=== PATIENT | female | born 1970 | race Caucasian/White ===

== ENCOUNTER 2017-04-12 22:07 | Observation (INO) ==
[2017-04-12] MEDS ORDERED: 0.9 % Sodium Chloride 1,000 ML IVC ONE ×2 (22:31→23:31)
[2017-04-12] MEDS ORDERED: Lactulose Oral Soln 20 GM/30 ML UDC PO ONE (22:31)
[2017-04-12 22:52] LABS: Basophils % 1.2 %; Eosinophils # 0.2 K/mcL (0.0-0.6); Eosinophils % 5.4 %; Hematocrit 36.8 % (35.3-44.9); Hemoglobin 12.2 g/dL (11.5-15.4); Immature Granulocytes % 0.3 % (0-4); Immature Platelets 3.6 % (1.1-6.1); Lymphocytes # 1.2 K/mcL (0.6-4.6); Lymphocytes % 35.1 %; Mean Corpuscular HGB Conc 33.2 g/dL (31.6-35.5); Mean Corpuscular Hemoglobin 30.8 pg (28.0-33.3); Mean Corpuscular Volume 92.9 fL (83.0-100.0); Mean Platelet Volume 10.5 fL (9.4-12.4); Monocytes # 0.3 K/mcL (0.0-1.3); Neutrophils # 1.6 K/mcL (1.6-8.9); Red Blood Count 3.96 M/mcL (3.82-4.97); Red Cell Distribution Width 13.8 % (11.5-14.5)
[2017-04-12 22:53] LABS: Bilirubin,Urine Negative (Negative); Blood,Urine Negative (Negative); Color,Urine Yellow (Yellow); Glucose,Urine (UA) Normal (Normal); Ketones,Urine Negative (Negative); Leukocyte Esterase,Urine Negative (Negative); Nitrite,Urine Negative (Negative); Protein,Urine Negative (Neg-Trace); Specific Gravity,Urine 1.014 (1.010-1.025); Urobilinogen,Urine Normal (Normal)
[2017-04-12 22:54] LABS: INR 1.1; Prothrombin Time 11.6 Seconds (9.4-12.1)
[2017-04-12 22:55] LABS: Bacteria,Urine None Seen per hpf (None-Few); Hyaline Casts,Urine None Seen per lpf (None-Few); RBC,Urine 0-3 per hpf (0-3); Squamous Epithelial Cell,Urine Many per lpf (None-Few)
[2017-04-12 22:56] LABS: Amphetamine Screen,Urine Negative ng/mL (Cutoff=1000); Barbiturate Screen,Urine Negative ng/mL (Cutoff=200); Benzodiazepines Screen,Urine Negative ng/mL (Cutoff=200); Cannabinoid Screen,Urine Negative ng/mL (Cutoff = 50); Clarity,Urine Clear (Clear); Cocaine Screen,Urine Negative ng/mL (Cutoff= 300); Opiate Screen,Urine Negative ng/mL (Cutoff=300); Phencyclidine Screen,Urine Negative ng/mL (Cutoff=25)
[2017-04-12 22:57] LABS: Activated Partial Thrombo Time 33.9 Seconds (26.0-36.0)
--- NOTE | 2017-04-12 23:01 | Emergency Department Note ---
Disposition Clinical Impression: Alcoholic liver disease, Pancreatitis Alcoholic hepatitis Qualifiers: Ascites presence: without ascites Qualified Code(s): K70.10 - Alcoholic hepatitis without ascites Disposition: Admitted As Inpatient Abdominal Pain HPI - General Chief Complaint: ED Abdominal Pain Stated Complaint: AMS/ABD Pain Time Seen by Provider: 04/12/17 22:15 Source: patient Mode of arrival: ambulatory Limitations: no limitations Nursing Notes Reviewed: Yes Vital Signs Reviewed: Yes - History of Present Illness HPI Narrative: Patient presents to the ED with the chief complaint of abdominal pain and altered mental status. Most of the history is given by the patient's boyfriend. He states that she has a history of alcoholic cirrhosis and continues to drink. States that she has mostly stopped drinking liquor but she does drink beer and last drink was a few minutes prior to arrival. She is noncompliant with her lactulose and has been having altered mental status the last 2 days. She complains of feeling fuzzy headed, headache, loss of vision in her left eye. Headaches, generalized achy and like her previous issues with her ammonia level being high. She complains of right upper quadrant abdominal pain, nausea but no vomiting. No diarrhea. No chest pain or shortness of breath. Pain Scale: 10 - Related Data Home Medications Medication Instructions Recorded Confirmed FentaNYL PATCH [Duragesic] 25 mcg TD Q72H 04/25/15 04/25/15 Furosemide [Lasix] 80 mg PO BIDDIURETIC 04/25/15 04/25/15 LORazepam [Ativan] 1 mg PO DAILY PRN 04/25/15 04/25/15 Lactulose 20 gm PO TID 04/25/15 04/13/17 Multivitamin [Multi-Day Vitamins] 1 cap PO DAILY 04/25/15 04/13/17 Nadolol [Corgard] 40 mg PO DAILY 04/25/15 04/13/17 Nortriptyline [Pamelor] 25 mg PO BID 04/25/15 04/13/17 Oxycodone HCl 10 mg PO TID 04/25/15 04/25/15 Promethazine [Phenergan] 25 mg PO Q8H PRN 04/25/15 04/13/17 Spironolactone [Aldactone] 150 mg PO BID 04/25/15 04/13/17 Thiamine (B-1) [Vitamin B-1] 100 mg PO DAILY 04/25/15 04/13/17 Previous Rx's Medication Instructions Recorded Ibuprofen [Motrin] 400 mg PO Q6HR PRN #60 tablet 02/22/16 Allergies Allergy/AdvReac Type Severity Reaction Status Date / Time No Known Allergies Allergy Verified 10/10/16 08:54 All systems ED: reviewed and negative except as stated. Constitutional: Denies: fever Cardiovascular: Denies: chest pain Respiratory: Denies: cough, dyspnea Gastrointestinal: Reports: abdominal pain, nausea. Denies: hematemesis, melena , hematochezia Genitourinary: Denies: dysuria, hematuria Neurological: Reports: confusion Hematological/Lymphatic: Reports: easy bruising Abdominal Pain PMH - Past Medical History Medical history: Reports: liver disease, other Female Surgical History: Reports: cholecystectomy, other Psychiatric history: Reports: anxiety, depression, other - Social History Smoking status: Current every day smoker Alcohol use: Reports: heavy, recent Drug use: Reports: none Physical Exam - General Limitations: no limitations General appearance: alert, in no apparent distress - Head Head exam: atraumatic, normocephalic, normal inspection - Eye Eye exam: Present: normal appearance, PERRL, EOMI. Absent: scleral icterus, conjunctival injection - ENT ENT exam: normal exam, normal oropharynx, mucous membranes moist - Neck Neck exam: Present: normal inspection, full ROM, trachea midline. Absent: tenderness, meningismus - Chest Chest inspection: Present: normal inspection, symmetric chest wall rise. Absent : tenderness - Respiratory Respiratory exam: Present: normal lung sounds bilaterally. Absent: respiratory distress, wheezes - Cardiovascular Cardiovascular exam: Present: regular rate, normal rhythm, normal heart sounds - Abdominal Exam Abdominal exam: Present: soft, tenderness, normal bowel sounds. Absent: distention, guarding, rebound, rigidity Abdominal tenderness: Present: RUQ, epigastrium, moderate - Extremities Exam Extremities exam: Present: normal inspection, full ROM. Absent: tenderness, pedal edema - Back Exam Back exam: Present: normal inspection, CVA tenderness (R). Absent: CVA tenderness (L) - Neurological Exam Neurological exam: Present: alert, oriented X3. Absent: motor sensory deficit - Psychiatric Psychiatric exam: Present: depressed - Skin Skin exam: Present: warm, dry, intact. Absent: cyanosis, diaphoresis Course - Consultations Consultation #1: The hospitalist, Dr. Steele, was consulted and accepted admission of the patient to the medical service. Vital Signs Temperature 98.4 F 04/12/17 22:08 Pulse Rate 91 04/12/17 22:08 Respiratory Rate 16 04/12/17 22:08 Blood Pressure 113/52 04/12/17 22:08 O2 Sat by Pulse Oximetry 94 04/12/17 22:08 Temperature 98.2 F 04/13/17 06:46 Pulse Rate 77 04/13/17 06:46 Respiratory Rate 18 04/13/17 06:46 Blood Pressure 111/67 04/13/17 06:46 O2 Sat by Pulse Oximetry 94 04/13/17 06:46 Oxygen Delivery Oxygen Delivery Room Air Abdominal Pain - Medical Records Medical records reviewed: Yes I reviewed the patient's medical records. - Lab Data Lab results reviewed: Yes I reviewed the patient's lab results. Result diagrams: 04/12/17 22:40 04/13/17 05:31 Lab Results 04/12/17 04/12/17 04/12/17 Range/Units 22:23 22:23 22:40 WBC 3.3 L (4.3-11.1) K/mcL RBC 3.96 (3.82-4.97) M/mcL Hgb 12.2 (11.5-15.4) g/dL Hct 36.8 (35.3-44.9) % MCV 92.9 (83.0-100.0) fL MCH 30.8 (28.0-33.3) pg MCHC 33.2 (31.6-35.5) g/dL RDW 13.8 (11.5-14.5) % Plt Count 54 L (140-400) K/mcL MPV 10.5 (9.4-12.4) fL Immature Gran % 0.3 (0-4) % Seg Neutrophils % 49.0 % Lymphocytes % 35.1 % Monocytes % 9.0 % Eosinophils % 5.4 % Basophils % 1.2 % Neutrophils # 1.6 (1.6-8.9) K/mcL Lymphocytes # 1.2 (0.6-4.6) K/mcL Monocytes # 0.3 (0.0-1.3) K/mcL Eosinophils # 0.2 (0.0-0.6) K/mcL Basophils # 0.0 (0.0-0.2) K/mcL Immature Plt Fraction 3.6 (1.1-6.1) % PT (9.4-12.1) Seconds INR APTT (26.0-36.0) Seconds Sodium (136-145) mEq/L Potassium (3.5-4.5) mEq/L Chloride (98-109) mEq/L Carbon Dioxide (19-29) mEq/L BUN (7-20) mg/dL Creatinine (0.57-1.11) mg/dL Est GFR ( Amer) (> 60) Est GFR (Non-Af Amer) (> 60) BUN/Creatinine Ratio (6-26) Glucose (70-99) mg/dL Calculated Osmolality (280-300) Lactic Acid (0.5-2.2) mmol/L Calcium (8.6-10.8) mg/dL Total Bilirubin (0.2-1.2) mg/dL Direct Bilirubin (0.0-0.5) mg/dL Indirect Bilirubin (0.0-1.2) mg/dL AST (5-34) Units/L ALT (0-55) Units/L Alkaline Phosphatase (38-126) Units/L Creatine Kinase (29-168) Units/L Troponin I (0-0.03) ng/mL Serum Total Protein (6.0-8.3) g/dL Albumin (3.5-5.0) g/dL Globulin (2.4-3.5) g/dL Albumin/Globulin Ratio (1.1-2.2) Ur Specimen Adequacy See below A Urine Color Yellow (Yellow) Urine Clarity Clear (Clear) Urine pH 7.0 (5.0-8.0) pH Units Ur Specific [place] 1.014 (1.010-1.025) Urine Protein Negative (Neg-Trace) mg/dL Urine Glucose (UA) Normal (Normal) mg/dL Urine Ketones Negative (Negative) mg/dL Urine Blood Negative (Negative) Urine Nitrite Negative (Negative) Urine Bilirubin Negative (Negative) Urine Urobilinogen Normal (Normal) mg/dL Ur Leukocyte Esterase Negative (Negative) Urine Microscopic RBC 0-3 (0-3) per hpf Ur Squamous Epith Cells Many H (None-Few) per lpf Urine Bacteria None Seen (None-Few) per hpf Hyaline Casts None Seen (None-Few) per lpf Ur Culture Indicated? NO (NO) Urine Opiates Screen Negative (Bjarcv=788) ng/mL Ur Barbiturates Screen Negative (Gkxfmm=537) ng/mL Ur Phencyclidine Scrn Negative (Cutoff=25) ng/mL Ur Amphetamines Screen Negative (Wtmiwv=6267) ng/mL U Benzodiazepines Scrn Negative (Budked=624) ng/mL Urine Cocaine Screen Negative (Cutoff= 300) ng/mL U Marijuana (THC) Screen Negative (Cutoff = 50) ng/mL Ethyl Alcohol (0-10) mg/dL 04/12/17 04/12/17 04/12/17 Range/Units 22:40 22:40 22:40 WBC (4.3-11.1) K/mcL RBC (3.82-4.97) M/mcL Hgb (11.5-15.4) g/dL Hct (35.3-44.9) % MCV (83.0-100.0) fL MCH (28.0-33.3) pg MCHC (31.6-35.5) g/dL RDW (11.5-14.5) % Plt Count (140-400) K/mcL MPV (9.4-12.4) fL Immature Gran % (0-4) % Seg Neutrophils % % Lymphocytes % % Monocytes % % Eosinophils % % Basophils % % Neutrophils # (1.6-8.9) K/mcL Lymphocytes # (0.6-4.6) K/mcL Monocytes # (0.0-1.3) K/mcL Eosinophils # (0.0-0.6) K/mcL Basophils # (0.0-0.2) K/mcL Immature Plt Fraction (1.1-6.1) % PT 11.6 (9.4-12.1) Seconds INR 1.1 APTT 33.9 (26.0-36.0) Seconds Sodium 143 (136-145) mEq/L Potassium 3.1 L (3.5-4.5) mEq/L Chloride 111 H (98-109) mEq/L Carbon Dioxide 21 (19-29) mEq/L BUN 3 L (7-20) mg/dL Creatinine 0.74 (0.57-1.11) mg/dL Est GFR ( Amer) > 60 (> 60) Est GFR (Non-Af Amer) > 60 (> 60) BUN/Creatinine Ratio 4 L (6-26) Glucose 132 H (70-99) mg/dL Calculated Osmolality 294 (280-300) Lactic Acid (0.5-2.2) mmol/L Calcium 8.6 (8.6-10.8) mg/dL Total Bilirubin 0.8 (0.2-1.2) mg/dL Direct Bilirubin 0.5 (0.0-0.5) mg/dL Indirect Bilirubin 0.3 (0.0-1.2) mg/dL AST 306 H (5-34) Units/L ALT 224 H (0-55) Units/L Alkaline Phosphatase 153 H (38-126) Units/L Creatine Kinase 298 H (29-168) Units/L Troponin I 0.01 (0-0.03) ng/mL Serum Total Protein 7.0 (6.0-8.3) g/dL Albumin 3.2 L (3.5-5.0) g/dL Globulin 3.8 H (2.4-3.5) g/dL Albumin/Globulin Ratio 0.8 L (1.1-2.2) Ur Specimen Adequacy Urine Color (Yellow) Urine Clarity (Clear) Urine pH (5.0-8.0) pH Units Ur Specific [place] (1.010-1.025) Urine Protein (Neg-Trace) mg/dL Urine Glucose (UA) (Normal) mg/dL Urine Ketones (Negative) mg/dL Urine Blood (Negative) Urine Nitrite (Negative) Urine Bilirubin (Negative) Urine Urobilinogen (Normal) mg/dL Ur Leukocyte Esterase (Negative) Urine Microscopic RBC (0-3) per hpf Ur Squamous Epith Cells (None-Few) per lpf Urine Bacteria (None-Few) per hpf Hyaline Casts (None-Few) per lpf Ur Culture Indicated? (NO) Urine Opiates Screen (Lufagw=152) ng/mL Ur Barbiturates Screen (Bovwya=119) ng/mL Ur Phencyclidine Scrn (Cutoff=25) ng/mL Ur Amphetamines Screen (Cbasut=9979) ng/mL U Benzodiazepines Scrn (Obnckx=982) ng/mL Urine Cocaine Screen (Cutoff= 300) ng/mL U Marijuana (THC) Screen (Cutoff = 50) ng/mL Ethyl Alcohol 306 H (0-10) mg/dL 04/12/17 Range/Units 22:40 WBC (4.3-11.1) K/mcL RBC (3.82-4.97) M/mcL Hgb (11.5-15.4) g/dL Hct (35.3-44.9) % MCV (83.0-100.0) fL MCH (28.0-33.3) pg MCHC (31.6-35.5) g/dL RDW (11.5-14.5) % Plt Count (140-400) K/mcL MPV (9.4-12.4) fL Immature Gran % (0-4) % Seg Neutrophils % % Lymphocytes % % Monocytes % % Eosinophils % % Basophils % % Neutrophils # (1.6-8.9) K/mcL Lymphocytes # (0.6-4.6) K/mcL Monocytes # (0.0-1.3) K/mcL Eosinophils # (0.0-0.6) K/mcL Basophils # (0.0-0.2) K/mcL Immature Plt Fraction (1.1-6.1) % PT (9.4-12.1) Seconds INR APTT (26.0-36.0) Seconds Sodium (136-145) mEq/L Potassium (3.5-4.5) mEq/L Chloride (98-109) mEq/L Carbon Dioxide (19-29) mEq/L BUN (7-20) mg/dL Creatinine (0.57-1.11) mg/dL Est GFR ( Amer) (> 60) Est GFR (Non-Af Amer) (> 60) BUN/Creatinine Ratio (6-26) Glucose (70-99) mg/dL Calculated Osmolality (280-300) Lactic Acid 1.6 (0.5-2.2) mmol/L Calcium (8.6-10.8) mg/dL Total Bilirubin (0.2-1.2) mg/dL Direct Bilirubin (0.0-0.5) mg/dL Indirect Bilirubin (0.0-1.2) mg/dL AST (5-34) Units/L ALT (0-55) Units/L Alkaline Phosphatase (38-126) Units/L Creatine Kinase (29-168) Units/L Troponin I (0-0.03) ng/mL Serum Total Protein (6.0-8.3) g/dL Albumin (3.5-5.0) g/dL Globulin (2.4-3.5) g/dL Albumin/Globulin Ratio (1.1-2.2) Ur Specimen Adequacy Urine Color (Yellow) Urine Clarity (Clear) Urine pH (5.0-8.0) pH Units Ur Specific [place] (1.010-1.025) Urine Protein (Neg-Trace) mg/dL Urine Glucose (UA) (Normal) mg/dL Urine Ketones (Negative) mg/dL Urine Blood (Negative) Urine Nitrite (Negative) Urine Bilirubin (Negative) Urine Urobilinogen (Normal) mg/dL Ur Leukocyte Esterase (Negative) Urine Microscopic RBC (0-3) per hpf Ur Squamous Epith Cells (None-Few) per lpf Urine Bacteria (None-Few) per hpf Hyaline Casts (None-Few) per lpf Ur Culture Indicated? (NO) Urine Opiates Screen (Gnewry=970) ng/mL Ur Barbiturates Screen (Jdgqjs=664) ng/mL Ur Phencyclidine Scrn (Cutoff=25) ng/mL Ur Amphetamines Screen (Aaiusy=6697) ng/mL U Benzodiazepines Scrn (Kjisdc=483) ng/mL Urine Cocaine Screen (Cutoff= 300) ng/mL U Marijuana (THC) Screen (Cutoff = 50) ng/mL Ethyl Alcohol (0-10) mg/dL - Radiology Data Radiology results reviewed: Yes I reviewed the patient's radiology results. Chest X-Ray 04/12/17 22:31 IMPRESSION: No acute abnormality. D/ / Jorge Sullivan MD / Jorge Sullivan MD Interpreting Provider: Jorge Sullivan MD Head CT 04/12/17 22:32 IMPRESSION: No acute intracranial abnormality. D/ / Jorge Sullivan MD / Jorge Sullivan MD Interpreting Provider: Jorge Sullivan MD Abdomen/Pelvis CT 04/12/17 22:35 IMPRESSION: 1. Mild edema surrounding a majority of the pancreas and within the pancreatic parenchyma. Findings are concerning for acute pancreatitis. No peripancreatic fluid collection. 2. Severe hepatic cirrhosis with portal hypertension. D/ / 04/13/2017 07:05:19 Jorge Sullivan MD / ashley Interpreting Provider: Jorge Sullivan MD - EKG Data EKG attestation: Yes I reviewed and interpreted this EKG. EKG results narrative: Sinus rhythm, rate 85, SD interval 161, QRS 96, QTC 4:15, indeterminate axis, no acute ischemic changes Attestation Statement - Attestation Attestation: I, Javon Mares MD, personally evaluated this patient and discussed their management with the resident physician. I reviewed the resident's note and agree with the documented findings, medical decision making, and plan of care. 46-year-old female with a history of alcoholic cirrhosis since to the emergency department with a complaint of increased right upper quadrant abdominal pain and increased confusion over the past few days. Patient continues to drink alcohol and drank beer just before coming to the emergency department. Patient is supposed to be on lactulose but has not taken it for several days. On examination patient is a well-developed well-nourished female in no acute distress. She is alert and oriented 3. Strong odor of alcohol on her breath. There is no cyanosis or diaphoresis. Chest is nontender to palpation. Breath sounds are equal bilaterally with a few faint bibasilar rales. No wheezes. Heart regular rate and rhythm. Abdomen is soft with normal bowel sounds. Moderate epigastric and right upper quadrant tenderness. Labs reviewed. The hospitalist, Dr. Steele, was consulted and accepted admission of the patient.
[2017-04-12 23:05] LABS: Alanine Aminotransferase 224 Units/L (0-55); Albumin 3.2 g/dL (3.5-5.0); Albumin/Globulin Ratio 0.8 (1.1-2.2); Alkaline Phosphatase 153 Units/L (38-126); Aspartate Amino Transferase 306 Units/L (5-34); BUN/Creatinine Ratio 4 (6-26); Bilirubin,Direct 0.5 mg/dL (0.0-0.5); Bilirubin,Indirect 0.3 mg/dL (0.0-1.2); Bilirubin,Total 0.8 mg/dL (0.2-1.2); Calcium 8.6 mg/dL (8.6-10.8); Carbon Dioxide 21 mEq/L (19-29); Chloride 111 mEq/L (98-109); Creatine Kinase 298 Units/L (29-168); Ethanol 306 mg/dL (0-10); Globulin 3.8 g/dL (2.4-3.5); Glucose 132 mg/dL (70-99); Osmolality,Calculated 294 (280-300); Potassium 3.1 mEq/L (3.5-4.5); Sodium 143 mEq/L (136-145); eGFR For African Americans > 60 (> 60); eGFR For Non-African Americans > 60 (> 60)
[2017-04-12 23:06] LABS: Blood Urea Nitrogen 3 mg/dL (7-20)
[2017-04-12 23:14] LABS: Platelet Count 54 K/mcL (140-400)
[2017-04-13] MEDS ORDERED: Potassium Chloride 40 MEQ, Lidocaine 1% 2 ML in D5% in Water 500 ML IVPB ONE (00:34)
[2017-04-13] MEDS ORDERED: Naloxone 0.4 MG/ML INJ IVP PRN (03:27)
[2017-04-13] MEDS ORDERED: Ondansetron 4 MG/2 ML VIAL IVP PRN (03:27)
[2017-04-13] MEDS ORDERED: 0.9 % Sodium Chloride 1,000 ML IVC SCH (03:30)
--- NOTE | 2017-04-13 03:34 | Internal Med History&Physical ---
Date of Encounter: 04/13/17 Time of Encounter: 03:31 Assessment and Plan (1) Abdominal pain Current visit: Yes Status: Acute Suspect secondary to alcoholic hepatitis as well as liver enzymes are quite elevated. Need to watch closely. Follow liver enzymes. Qualifiers: Abdominal location: right upper quadrant Qualified Code(s): R10.11 - Right upper quadrant pain (2) Alcoholic hepatitis Current visit: Yes Status: Acute Follow liver enzymes Qualifiers: Ascites presence: without ascites Qualified Code(s): K70.10 - Alcoholic hepatitis without ascites (3) Alcoholic liver disease Current visit: Yes Status: Acute Patient has liver cirrhosis and alcoholic hepatitis. When she becomes sober she would need counseling. She is already on all good medication for her liver cirrhosis including lactulose and nadolol low-dose Lasix and potassium and Aldactone. I think we should continue all (4) Alcoholism Current visit: No Status: Chronic When she becomes sober she needs counseling. Continue thiamine and multivitamin and folic acid. Continue IV (5) Hypokalemia Current visit: Yes Status: Acute Supplement potassium and recheck in the morning Internal Medicine - H&P: HPI Chief complaint: Abdominal pain Admitted From: Home Plans for Post Hospital Care: Home History of present illness: Ms. Nice is a 46 year old female was brought in by her boyfriend for abdominal pain. Patient is quite intoxicated most of the information obtained from boyfriend. Patient has history of alcoholism and alcoholic liver disease/ cirrhosis. Apparently she is noncompliant with medical treatment. Unfortunately she has continued to drink and her last drink was only a few minutes before arrival. Boyfriend is concerned if her ammonia level is high however it is only 53. She is apparently slow during last 2 days and I think this could be related to her alcoholism rather than cirrhosis alone. For abdominal pain they were concerned if she has pancreatitis but her lipase is only 93. She says pain has been bothering her for 2 months. Pain is mainly in right upper quadrant and considering the fact that her liver enzymes are quite elevated I suspect it is related to alcoholic hepatitis. Pain is localized does not seem to radiate elsewhere and is accompanied with some nausea and diarrhea. She had cholecystectomy in the past. No other aggravating or relieving factors. She was told that quitting alcohol probably some best treatment in her case. Past Med Surg Social Fam HX - Past Medical History Medical history: cirrhosis, liver disease, other Psychiatric history: anxiety, depression, other - Past Surgical History Surgical History: cholecystectomy, hysterectomy - Social History Smoking Status: Current every day smoker Packs per day: 1 Smokeless Tobacco Status: No Alcohol use: heavy, recent Drug use: none - Family History Mother Living Status: Still Living Hx Family Cardiac Disorders: Yes (Heart disease) Internal Medicine - H&P: Meds FentaNYL PATCH [Duragesic] 25 mcg TD Q72H 04/25/15 [History] Furosemide [Lasix] 80 mg PO BIDDIURETIC 04/25/15 [History] LORazepam [Ativan] 1 mg PO DAILY PRN 04/25/15 [History] Lactulose 20 gm PO TID 04/25/15 [History] Multivitamin [Multi-Day Vitamins] 1 cap PO DAILY 04/25/15 [History] Nadolol [Corgard] 40 mg PO DAILY 04/25/15 [History] Nortriptyline [Pamelor] 25 mg PO BID 04/25/15 [History] Oxycodone HCl 10 mg PO TID 04/25/15 [History] Promethazine [Phenergan] 25 mg PO Q8H PRN 04/25/15 [History] Spironolactone [Aldactone] 150 mg PO BID 04/25/15 [History] Thiamine (B-1) [Vitamin B-1] 100 mg PO DAILY 04/25/15 [History] Ibuprofen [Motrin] 400 mg PO Q6HR PRN #60 tablet 02/22/16 [Rx] 3 Allergy/AdvReac Type Severity Reaction Status Date / Time No Known Allergies Allergy Verified 10/10/16 08:54 ROS unobtainable: due to mental status All Systems PM: Could not be performed as patient is intoxicated - Constitutional Vitals: Temp Pulse Resp BP Pulse Ox 98.4 F 99 16 122/90 95 04/12/17 22:08 04/12/17 23:56 04/13/17 01:20 04/13/17 01:20 04/12/17 23:56 General appearance: Present: disheveled, no acute distress - Head Head exam: Present: atraumatic, normocephalic - Eye Eye exam: Present: PERRL, conjuntiva pink, sclera anicteric Pupils: Present: PERRL - Neck Neck exam general surgery: Present: supple, trachea midline. Absent: lymphadenopathy - Respiratory Respiratory exam: Present: CTAB. Absent: accessory muscle use, rales, rhonchi, wheezes - Cardiovascular Cardiovascular exam: Present: RRR, +S1, +S2. Absent: diastolic murmur, gallop, rubs, systolic murmur - GI/Abdominal GI/Abdominal exam: Present: normal bowel sounds, soft, tenderness, no peritoneal signs. Absent: distended Additional comments: Tender liver edge - Extremities Exam Extremities exam: Present: warm, radial pulses palpable and symmetrical. Absent : calf tenderness, cyanotic, pedal edema - Neurological Exam Neurological exam: Present: altered, no focal deficits. Absent: pronater drift , facial droop, speech deficit - Skin Skin exam: Present: dry, intact Internal Med - H&P Results - Labs CBC & Chem 7: 04/12/17 22:40 04/12/17 22:40
[2017-04-13] MEDS ORDERED: Famotidine 20 MG/2 ML VIAL IVP SCH (06:00)
[2017-04-13 07:14] LABS: Alanine Aminotransferase 182 Units/L (0-55); Albumin 2.7 g/dL (3.5-5.0); Albumin/Globulin Ratio 0.8 (1.1-2.2); Alkaline Phosphatase 132 Units/L (38-126); Aspartate Amino Transferase 242 Units/L (5-34); BUN/Creatinine Ratio 5 (6-26); Bilirubin,Total 0.7 mg/dL (0.2-1.2); Calcium 7.8 mg/dL (8.6-10.8); Carbon Dioxide 21 mEq/L (19-29); Chloride 112 mEq/L (98-109); Globulin 3.4 g/dL (2.4-3.5); Glucose 125 mg/dL (70-99); Osmolality,Calculated 288 (280-300); Potassium 3.4 mEq/L (3.5-4.5); Sodium 140 mEq/L (136-145); Total Protein 6.1 g/dL (6.0-8.3); eGFR For African Americans > 60 (> 60); eGFR For Non-African Americans > 60 (> 60)
[2017-04-13 07:15] LABS: Blood Urea Nitrogen 3 mg/dL (7-20); Eosinophils # 0.1 K/mcL (0.0-0.6); Eosinophils % 3.8 %; Hematocrit 33.4 % (35.3-44.9); Immature Platelets 4.7 % (1.1-6.1); Lymphocytes # 0.8 K/mcL (0.6-4.6); Lymphocytes % 39.4 %; Mean Corpuscular HGB Conc 32.9 g/dL (31.6-35.5); Mean Corpuscular Hemoglobin 31.2 pg (28.0-33.3); Mean Corpuscular Volume 94.6 fL (83.0-100.0); Mean Platelet Volume 10.7 fL (9.4-12.4); Monocytes # 0.3 K/mcL (0.0-1.3); Neutrophils # 0.9 K/mcL (1.6-8.9); Red Blood Count 3.53 M/mcL (3.82-4.97); Segmented Neutrophils % 43.8 %
[2017-04-13] MEDS ORDERED: Furosemide 20 MG TABLET PO SCH (08:00)
[2017-04-13 08:55] LABS: Platelet Count 42 K/mcL (140-400)
[2017-04-13 08:57] LABS: Anisocytosis 1+ (Not Present); Platelet Estimate Marked Decrease (Normal)
[2017-04-13] MEDS ORDERED: Multivit/Ca/Min/Fe/FA 1 TAB TABLET PO SCH (09:00)
[2017-04-13] MEDS ORDERED: Thiamine (B-1) 100 MG TABLET PO SCH (09:00)
[2017-04-13] MEDS: Lactulose Oral Soln 20 GM/30 ML UDC PO SCH ×2 (09:44→14:46)
[2017-04-13 11:27] VITALS: BP 110/69
--- NOTE | 2017-04-13 15:12 | Discharge Summary ---
Date of Encounter: 04/13/17 Time of Encounter: 15:09 - Discharge Diagnosis (1) Abdominal pain Priority: Primary Status: Acute Qualifiers: Abdominal location: right upper quadrant Qualified Code(s): R10.11 - Right upper quadrant pain (2) Alcoholic hepatitis Priority: Secondary Status: Acute Qualifiers: Ascites presence: without ascites Qualified Code(s): K70.10 - Alcoholic hepatitis without ascites (3) Alcoholic liver disease Priority: Secondary Status: Acute (4) Alcoholism Priority: Secondary Status: Chronic (5) Hypokalemia Priority: Secondary Status: Acute - Discharge Medications Prescriptions: Potassium Chloride [Klor-Con Sprinkle] 10 meq PO DAILY #30 capsule.er Home Medications: Furosemide [Lasix] 80 mg PO BIDDIURETIC 04/25/15 [History] Lactulose 20 gm PO TID 04/25/15 [History] Multivitamin [Multi-Day Vitamins] 1 cap PO DAILY 04/25/15 [History] Nadolol [Corgard] 40 mg PO DAILY 04/25/15 [History] Promethazine [Phenergan] 25 mg PO Q8H PRN 04/25/15 [History] Spironolactone [Aldactone] 150 mg PO BID 04/25/15 [History] Thiamine (B-1) [Vitamin B-1] 100 mg PO DAILY 04/25/15 [History] Potassium Chloride [Klor-Con Sprinkle] 10 meq PO DAILY #30 capsule.er 04/13/17 [ Rx] Allergies/Adverse Reactions: 3 Allergy/AdvReac Type Severity Reaction Status Date / Time No Known Allergies Allergy Verified 10/10/16 08:54 Date of admission: 04/13/17 00:56 Primary care physician: PCP NONE Discharging clinician: Jasmeet Marshall Anticipated date of discharge: 04/13/17 - Patient Status Disposition: Home, Self-Care Condition: Fair Functional capacity at discharge: independent ambulation Overall status at discharge: patient is progressing back to baseline - Discharge Instructions Instructions: Pancreatitis (DC) Follow Up With: NONE,PCP [Primary Care Provider] - (in 1-2 weeks) - Diet and Activity Activity: increase activity as tolerated Diet: low fat, low cholesterol, low salt diet Hospital course: Ms. Nice is a 46 year old female patient with history of alcohol abuse who was hospitalized here with abdominal pain. This is most likely due to alcohol consumption and possibly alcoholic gastritis. She was treated supportively. Kept nothing by mouth and given intravenous fluids. Her lipase was [address] scan showed some peripancreatic edema. Patient may very well have underlying chronic pancreatitis related to alcohol abuse. At this time she wishes to go home and has been tolerating oral diet well without much discomfort. She has been advised about alcohol cessation but does not wish to go to rehabilitation at this time as she has failed relapsed after her previous stint there. Clinically, she is stable to be discharged home and will follow up with her primary care provider for her liver disease. - Time Spent with Patient Total time spent providing and/or coordinating discharge services: Less than 30 minutes (25 min) - Constitutional Vitals: Temp Pulse Resp BP Pulse Ox 98.6 F 75 19 110/69 96 04/13/17 11:25 04/13/17 11:25 04/13/17 11:25 04/13/17 11:25 04/13/17 11:25 General appearance: Present: cooperative, disheveled, no acute distress, answers questions appropriately - Neck Neck exam general surgery: Present: supple, trachea midline. Absent: lymphadenopathy - Respiratory Respiratory exam: Present: CTAB. Absent: accessory muscle use, rales, rhonchi, wheezes - Cardiovascular Cardiovascular exam: Present: RRR, +S1, +S2. Absent: diastolic murmur, gallop, rubs, systolic murmur - GI/Abdominal GI/Abdominal exam: Present: normal bowel sounds, soft, tenderness (epigastric), no peritoneal signs. Absent: distended - Extremities Exam Extremities exam: Present: warm, radial pulses palpable and symmetrical. Absent : calf tenderness, cyanotic, pedal edema
--- NOTE | 2017-04-14 14:37 | Electrocardiograph Report ---
[place] [id number] Test Date: 2017-04-12 Pat Name: Roxane Nice Department: 102 Room: [facility] Gender: F [employer] Psychologist: Eliot : 1970 Requested By: Riley Fountain Order Number: [id number] Reading MD: Nely Bar Measurements Intervals [place] Rate: 85 P: 31 VA: 161 QRS: 0 QRSD: 96 T: 43 QT: 373 QTc: 415 Interpretive Statements SINUS RHYTHM Electronically Signed On 04-14-2017 14:35:30 EDT by Nely Bar
== END 2017-04-13 16:25 | disposition home or self-care (01) ==
LOC: EMEROO 22:07 → 3NENU 22:07 → SUATTDRO 04-13 00:56 → 3NENU 04-13 01:29
PROVIDERS: ADMIT Internal Medicine; ATTEND Internal Medicine

== ENCOUNTER 2020-05-16 23:07 | Observation (INO) ==
[2020-05-16] MEDS ORDERED: 0.9 % Sodium Chloride 1,000 ML IVC ONE (23:16)
[2020-05-17 00:03] LABS: INR 1.2; Prothrombin Time 13.4 Seconds (9.4-12.1)
[2020-05-17 00:09] LABS: Basophils # 0.1 K/mcL (0.0-0.2); Basophils % 1.8 %; Eosinophils # 0.2 K/mcL (0.0-0.6); Eosinophils % 3.5 %; Hematocrit 42.5 % (35.3-44.9); Hemoglobin 14.1 g/dL (11.5-15.4); Immature Granulocytes % 1.2 % (0-4); Immature Platelets 5.3 % (1.1-6.1); Lymphocytes % 20.3 %; Mean Corpuscular HGB Conc 33.2 g/dL (31.6-35.5); Mean Corpuscular Hemoglobin 31.5 pg (28.0-33.3); Mean Corpuscular Volume 94.9 fL (83.0-100.0); Mean Platelet Volume 10.5 fL (9.4-12.4); Monocytes # 0.5 K/mcL (0.0-1.3); Monocytes % 10.9 %; Platelet Count 105 K/mcL (140-400); Red Blood Count 4.48 M/mcL (3.82-4.97); Red Cell Distribution Width 13.8 % (11.5-14.5); Segmented Neutrophils % 62.3 %; White Blood Count 4.9 K/mcL (4.3-11.1)
[2020-05-17 00:13] LABS: Alanine Aminotransferase 55 Units/L (7-52); Albumin 3.8 g/dL (3.5-5.7); Albumin/Globulin Ratio 1.2 (1.1-2.2); Alkaline Phosphatase 170 Units/L (34-104); Aspartate Amino Transferase 138 Units/L (13-39); BUN/Creatinine Ratio 12 (6-26); Bilirubin,Direct 0.8 mg/dL (0.0-0.2); Bilirubin,Indirect 1.1 mg/dL (0.0-1.0); Bilirubin,Total 1.9 mg/dL (0.3-1.0); Blood Urea Nitrogen 6 mg/dL (6-20); Calcium 8.4 mg/dL (8.6-10.3); Carbon Dioxide 23 mEq/L (23-29); Chloride 108 mEq/L (98-107); Ethanol 432 mg/dL (Less than 10); Globulin 3.1 g/dL (2.4-3.5); Glucose 150 mg/dL (70-105); Osmolality,Calculated 294 (280-300); Sodium 142 mEq/L (136-145); Total Protein 6.9 g/dL (6.4-8.9); eGFR For African Americans > 60 (> 60); eGFR For Non-African Americans > 60 (> 60)
[2020-05-17 00:14] LABS: Troponin I < 0.03 ng/mL (< 0.04)
[2020-05-17] MEDS ORDERED: Potassium Chloride Elixir 20 MEQ/15 ML UDC PO ONE (00:15)
[2020-05-17 00:28] LABS: Neutrophils # 3.1 K/mcL (1.6-8.9); Platelet Estimate Slight Decrease (Normal)
[2020-05-17] MEDS ORDERED: Isovue-370 500 ML BOTTLE IVP ONE (00:45)
[2020-05-17] MEDS ORDERED: Pantoprazole 40 MG VIAL IVP ONE (01:56)
[2020-05-17 03:31] LABS: Adenovirus DETECTED (Not Detect); Bordetella Pertussis Not Detected (Not Detect); Chlamydophila pneumoniae Not Detected (Not Detect); Coronavirus 229E Not Detected (Not Detect); Coronavirus HKU1 Not Detected (Not Detect); Coronavirus NL63 Not Detected (Not Detect); Coronavirus OC43 Not Detected (Not Detect); Human Metapneumovirus Not Detected (Not Detect); Human Rhinovirus/Enterovirus Not Detected (Not Detect); Influenza A Subtype 2009 H1 Not Detected (Not Detect); Influenza B Not Detected (Not Detect); Mycoplasma pneumoniae Not Detected (Not Detect); Parainfluenza Virus 1 Not Detected (Not Detect); Parainfluenza Virus 2 Not Detected (Not Detect); Parainfluenza Virus 3 Not Detected (Not Detect); Parainfluenza Virus 4 Not Detected (Not Detect); Respiratory Syncytial Virus Not Detected (Not Detect); SARS-CoV-2 Not Detected (Not Detect)
[2020-05-17] MEDS ORDERED: Naloxone 0.4 MG/ML INJ IVP PRN (04:54)
[2020-05-17] MEDS ORDERED: *HR* Promethazine 25 MG/ML VIAL IVP PRN (04:54)
[2020-05-17] MEDS ORDERED: 0.9 % Sodium Chloride 1,000 ML IVC SCH ×2 (05:00→05:45)
[2020-05-17] MEDS ORDERED: *HR* LORazepam 2 MG/ML VIAL IVP PRN (05:32)
[2020-05-17] MEDS ORDERED: diazePAM 10 MG/2 ML SYRINGE IVP PRN (05:49)
[2020-05-17 06:51] LABS: Basophils % 1.2 %
[2020-05-17 06:53] LABS: Eosinophils # 0.1 K/mcL (0.0-0.6); Eosinophils % 3.3 %; Hematocrit 37.9 % (35.3-44.9); Hemoglobin 12.8 g/dL (11.5-15.4); Mean Corpuscular HGB Conc 33.8 g/dL (31.6-35.5); Mean Corpuscular Hemoglobin 32.5 pg (28.0-33.3); Mean Corpuscular Volume 96.2 fL (83.0-100.0); Mean Platelet Volume 10.2 fL (9.4-12.4); Monocytes # 0.3 K/mcL (0.0-1.3); Monocytes % 10.2 %; Neutrophils # 1.5 K/mcL (1.6-8.9); Red Blood Count 3.94 M/mcL (3.82-4.97); Red Cell Distribution Width 13.8 % (11.5-14.5); Segmented Neutrophils % 59.3 %; White Blood Count 2.5 K/mcL (4.3-11.1)
[2020-05-17 07:06] LABS: Lymphocytes # 0.7 K/mcL (0.6-4.6); Platelet Count 76 K/mcL (140-400)
[2020-05-17 07:14] LABS: Alanine Aminotransferase 46 Units/L (7-52); Albumin 3.3 g/dL (3.5-5.7); Albumin/Globulin Ratio 1.3 (1.1-2.2); Alkaline Phosphatase 138 Units/L (34-104); Aspartate Amino Transferase 114 Units/L (13-39); BUN/Creatinine Ratio 9 (6-26); Bilirubin,Total 1.7 mg/dL (0.3-1.0); Blood Urea Nitrogen 4 mg/dL (6-20); Calcium 7.6 mg/dL (8.6-10.3); Carbon Dioxide 22 mEq/L (23-29); Chloride 112 mEq/L (98-107); Globulin 2.6 g/dL (2.4-3.5); Glucose 111 mg/dL (70-105); Lipase 217 Units/L (11-82); Magnesium 1.6 mg/dL (1.6-2.6); Osmolality,Calculated 292 (280-300); Phosphorous 3.1 mg/dL (2.7-4.5); Potassium 3.1 mEq/L (3.5-5.1); Sodium 142 mEq/L (136-145); Total Protein 5.9 g/dL (6.4-8.9); eGFR For African Americans > 60 (> 60); eGFR For Non-African Americans > 60 (> 60)
[2020-05-17] MEDS ORDERED: Potassium Chloride 40 MEQ, Lidocaine 1% 2 ML in 0.9 % Sodium Chloride 500 ML IVPB ONE (08:21)
[2020-05-17] MEDS ORDERED: Morphine Sulfate 2 MG/ML SYRINGE IVP PRN (08:22)
[2020-05-17] MEDS ORDERED: 0.9 % Sodium Chloride 250 ML IVC SCH (08:45)
[2020-05-17] MEDS: cefTRIAXone 1,000 MG in Water for inj. (sterile) 10 ML IVP SCH (09:24)
[2020-05-17] MEDS: Octreotide 400 MCG in 0.9 % Sodium Chloride 100 ML IVC SCH (09:24)
[2020-05-17] MEDS: 0.9 % Sodium Chloride 1,000 ML IVC SCH (15:44)
[2020-05-17] MEDS: Morphine Sulfate 2 MG/ML SYRINGE IVP PRN ×2 (15:45→21:32)
[2020-05-17] MEDS ORDERED: Thiamine (B-1) 100 MG, Folic Acid 1 MG, MVI, adult with vitamin K 10 ML in 0.9 % Sodi... IVPB SCH (18:00)
[2020-05-17] MEDS: Pantoprazole 40 MG VIAL IVP SCH (18:37)
[2020-05-18] MEDS: Octreotide 400 MCG in 0.9 % Sodium Chloride 100 ML IVC SCH (00:17)
[2020-05-18] MEDS: 0.9 % Sodium Chloride 1,000 ML IVC SCH (00:21)
[2020-05-18] MEDS ORDERED: *HR* Promethazine 25 MG/ML VIAL IVP ONE (00:50)
[2020-05-18] MEDS: Morphine Sulfate 2 MG/ML SYRINGE IVP PRN ×3 (01:55→14:25)
[2020-05-18] MEDS: Pantoprazole 40 MG VIAL IVP SCH (05:11)
[2020-05-18 06:26] LABS: ABG Base Excess -1 mEq/L (-2 to 3); ABG HCO3 23 mEq/L (21-27); ABG Oxygen Saturation 85 % (95-98); ABG PCO2 33 mmHg (35-45); ABG PH 7.45 pH Units (7.32-7.45); ABG PO2 47 mmHg (85-104); ABG TCO2 24 mEq/L (20-26)
[2020-05-18] MEDS ORDERED: Isovue-370 500 ML BOTTLE IVP ONE (08:21)
[2020-05-18] MEDS ORDERED: Azithromycin 500 MG in 0.9 % Sodium Chloride 250 ML IVPB SCH (09:00)
[2020-05-18] MEDS: cefTRIAXone 1,000 MG in Water for inj. (sterile) 10 ML IVP SCH (09:10)
[2020-05-18] MEDS ORDERED: Lidocaine -MPF 2% 2 ML VIAL ONE ×2 (09:49)
[2020-05-18] MEDS ORDERED: *HR* Propofol 200 MG/20 ML VIAL IVP ONE (10:43)
[2020-05-18 11:21] VITALS: BP 129/83
[2020-05-18 11:51] LABS: Basophils % 1.7 %; Eosinophils # 0.1 K/mcL (0.0-0.6); Eosinophils % 3.4 %; Hematocrit 38.2 % (35.3-44.9); Hemoglobin 12.4 g/dL (11.5-15.4); Immature Granulocytes % 0.6 % (0-4); Immature Platelets 5.4 % (1.1-6.1); Lymphocytes # 0.3 K/mcL (0.6-4.6); Lymphocytes % 17.1 %; Mean Corpuscular HGB Conc 32.5 g/dL (31.6-35.5); Mean Corpuscular Hemoglobin 31.5 pg (28.0-33.3); Mean Platelet Volume 10.9 fL (9.4-12.4); Monocytes # 0.2 K/mcL (0.0-1.3); Monocytes % 9.1 %; Neutrophils # 1.2 K/mcL (1.6-8.9); Red Blood Count 3.94 M/mcL (3.82-4.97); Segmented Neutrophils % 68.1 %; White Blood Count 1.8 K/mcL (4.3-11.1)
[2020-05-18 11:52] LABS: Platelet Count 60 K/mcL (140-400)
[2020-05-18 12:04] LABS: BUN/Creatinine Ratio 11 (6-26); Blood Urea Nitrogen 6 mg/dL (6-20); Calcium 7.3 mg/dL (8.6-10.3); Carbon Dioxide 25 mEq/L (23-29); Chloride 104 mEq/L (98-107); Glucose 121 mg/dL (70-105); Magnesium 1.3 mg/dL (1.6-2.6); Osmolality,Calculated 279 (280-300); Potassium 3.4 mEq/L (3.5-5.1); Sodium 135 mEq/L (136-145); eGFR For African Americans > 60 (> 60); eGFR For Non-African Americans > 60 (> 60)
== END 2020-05-18 15:08 | disposition home or self-care (01) ==
LOC: 3ANU 23:07 → EMEROOARM 23:07 → 3ANU 05-17 04:36
PROVIDERS: ADMIT Student in an Organized Health Care Education/Training Program; ATTEND Student in an Organized Health Care Education/Training Program